=== PATIENT | male | born 1945 | race Caucasian/White ===

== ENCOUNTER 2022-07-12 06:45 | Day surgery (SDC) | payer MEDICARE ==
[~2022-07-12] VITALS: Ht 165.1 cm; Wt 70.9 kg
[~2022-07-12 06:45] MED LIST: ASPIR-LOW81 MG PO; CLOPIDOGREL75 MG PO; LIPITOR80 MG PO; METOPROLOL TART25 MG PO
--- NOTE | 2022-07-12 10:05 | NUR ---
07/12/22 1005 Chen Asencio 0955 PT ARRIVED TO PACU ON 2L VIA NC, PT WAKES AND DENIES CONCERS. 1005 PT ROLLED TO BACK AND HOB INCREASED, PT DENIES PAIN AND NAUSEA. PT ENCOURAGED TO PASS GAS/AIR. PLAN OF CARE DISCUSSED.
--- NOTE | 2022-07-12 12:38 | NUR ---
PT ALERT AND SAYS HE IS FINE-EVERYTHING IS FINE AND THAT HE DOES HAVE A RIDE HOME. GAVE BLESSING AND WILL FOLLOW NEEDED
--- NOTE | 2022-07-13 07:10 | OR ---
[facility] [address] [place], [place] [address] Signed DATE OF OPERATION: 07/12/2022 SURGEON: Savannah Carl MD PREOPERATIVE DIAGNOSES: 1. Personal history of colonic polyps. 2. Minimal diverticulosis. POSTOPERATIVE DIAGNOSIS: Minimal left-sided diverticulosis. PROCEDURE: Colonoscopy with hot biopsy. ESTIMATED BLOOD LOSS: None. INDICATIONS: Compa is a 77-year-old gentleman, who was asked to see me for followup colonoscopy by his primary care provider. Compa is pretty certain he had a colonoscopy in 1981 at the age of 36 for rectal bleeding while living in [place], [place]. He is fairly certain that he had colonic polyps removed and was told to follow up in 5 years. I actually helped him with a colonoscopy in 2015 at the age of 70. He had a 4 mm hyperplastic polyp removed and had minimal left-sided diverticulosis. We asked him to follow up in 10 years for repeat colonoscopy. He has no family history of colon cancer or polyps. He has no current lower GI complaints. I had met with Compa in the office and I gave him a pamphlet on colonoscopy. He understands the nature of the test. There is risk including, but not limited to gas bloating, crampy abdominal pain, bleeding, perforation requiring surgery, and missed diagnosis. Because of his advanced age, his frail nature, his low functional status and his advanced past medical history including his heart issues as well as his daily use of alcohol and smoking, we asked that he undergo monitored anesthesia care as he did before. He had expressed understanding and wished to proceed. DESCRIPTION OF PROCEDURE: Compa was taken into our endoscopy suite and placed in the left lateral decubitus position. We were aware of his daily use of aspirin, but not Plavix. He held the aspirin, but did not hold his Plavix. He took his Plavix yesterday. Despite the fact that Plavix is on our preop instruction sheet. We had a long discussion regarding this issue. We decided we would go ahead and proceed with his colonoscopy. He is aware that Electronically Signed By: SAVANNAH CARL MD 07/13/22 0710 PATIENT NAME: COMPA STARKEY OPERATIVE REPORT DATE OF : 47 REPORT #: [id number] PHYSICIAN: SAVANNAH CARL MD PCP: MADHU MO MD REPORT IS CONFIDENTIAL AND NOT TO BE RELEASED WITHOUT AUTHORIZATION [facility] [address] [place] [id number] Signed there is risk of bleeding is over 1%. He told me his lives at home and be able to use the telephone and so forth if needed. We did a digital rectal exam after he was given propofol per our nurse residential sales executive. This showed his markedly enlarged and indurated prostate gland. There were no external hemorrhoids. No masses. He had good sphincter tone. The adult colonoscope was then introduced and advanced quite readily without resistance up into the cecum itself. His prep was quite excellent. We could easily see the appendiceal orifice and the ileocecal valve. The scope was then slowly withdrawn. We found no polyps throughout the entire colon or rectum. Again, he has a few diverticula in the left and sigmoid colon. They were moderate in size, few in number, and scattered about. Upon retroflexion of scope, there was no additional pathology noted above the anal canal. After this, the gas was suctioned out. The colonoscope was removed. Compa tolerated the procedure quite well. RECOMMENDATIONS: Compa can follow up as needed based on symptoms for future colonoscopies. Savannah Carl MD ALB/MODL /[id number] cc: Madhu Mo MD Patient Chart Savannah Carl MD Copies: MADHU MO MD, ANDREW L MD ~ Electronically Signed By: SAVANNAH CARL MD 07/13/22 0710 PATIENT NAME: COMPA STARKEY OPERATIVE REPORT DATE OF : 47 REPORT #: [id number] PHYSICIAN: SAVANNAH CARL MD PCP: MADHU MO MD REPORT IS CONFIDENTIAL AND NOT TO BE RELEASED WITHOUT AUTHORIZATION
== END 2022-07-12 10:25 | disposition home or self-care (01) ==
LOC: OPS 06:45 → DS 06:45 → OPS 08:30
PROVIDERS: ATTEND Colon & Rectal Surgery
PROC: 0DJD8ZZ Inspection of Lower Intestinal Tract, Via Natural or Artificial Opening Endoscopic (ICD-10-PCS; principal; 2022-07-12 08:30)
DX: K57.30 Diverticulosis of large intestine without perforation or abscess without bleeding (principal); I25.10 Atherosclerotic heart disease of native coronary artery without angina pectoris; Z95.1 Presence of aortocoronary bypass graft; I10 Essential (primary) hypertension; Z87.891 Personal history of nicotine dependence; Z79.82 Long term (current) use of aspirin; Z86.010 Personal history of colon polyps; Z78.9 Other specified health status
CPT/HCPCS: J2001; J2704; J7121